=== PATIENT | female | born 1975 ===

== ENCOUNTER 2017-05-04 09:11 | Emergency (ER) | payer MEDICAID ==
[2017-05-04 09:43] VITALS: BMI 20.1
[2017-05-04 10:13] VITALS: TEMP 98.5
[2017-05-04] MEDS ORDERED: Tetanus/Diphtheria Toxoids 0.5 ml Syringe IM ONE ×2 (10:15→10:21)
--- NOTE | 2017-05-04 10:18 | C.PDOC ---
History Of Present Illness 41-YEAR-OLD FEMALE, PRESENTS TO THE EMERGENCY DEPARTMENT WITH COMPLAINTS OF R 4 FINGER INJURY LAST NIGHT. FINGER CAUGHT BETWEEN FENCE AND DOOR. NEW ONSET SWELLING TO TIP OF FINGER. +ABRASIONS. R HANDED EXAM NAD EXT +HEMATOMA, SWELLING DISTAL R 4 FINGER INC DIP. LIMITED ROM DUE TO PAIN, SWELL. NO GROSS TENDON DEF. NAIL WNL SKIN +SUPERFICIAL LAC AND ABRASIONS. DISTAL R FINGER WELL APPROXIMATED, NO ACTIVE BLEED. Time Seen by Provider: 05/04/17 10:14 Chief Complaint (Nursing): Finger,Hand,&Wrist History Per: Patient History/Exam Limitations: no limitations Onset/Duration Of Symptoms: Hrs Current Symptoms Are (Timing): Still Present Past Medical History Reviewed: Historical Data, Nursing Documentation, Vital Signs Vital Signs: Last Vital Signs Temp 98.5 F 05/04/17 09:46 Pulse 95 H 05/04/17 09:46 Resp 20 05/04/17 09:46 BP 157/99 H 05/04/17 09:46 Pulse Ox 95 05/04/17 10:37 Family History: States: No Known Family Hx - Social History Hx Alcohol Use: No Hx Substance Use: No - Immunization History Hx Tetanus Toxoid Vaccination: No Hx Influenza Vaccination: No Hx Pneumococcal Vaccination: No Review Of Systems Musculoskeletal: Positive for: Other (FINGER PAIN S/P INJURY LAST NIGHT) Physical Exam - Physical Exam Skin: Other ( +SUPERFICIAL LAC AND ABRASIONS. DISTAL R FINGER WELL APPROXIMATED , NO ACTIVE BLEED.) Extremity: Other (+HEMATOMA, SWELLING DISTAL R 4 FINGER INC DIP. LIMITED ROM DUE TO PAIN, SWELL. NO GROSS TENDON DEF. NAIL WNL) ED Course And Treatment O2 Sat by Pulse Oximetry: 95 Pulse Ox Interpretation: Normal - Other Rad R 4 FINGER X-Ray: Interpreted by Me (TUFT FX DISTAL PHALANX) Disposition Counseled Patient/Family Regarding: Studies Performed, Diagnosis, Need For Followup, Rx Given - Disposition Referrals: Michelle Macias MD [Staff Provider] - Disposition: HOME/ ROUTINE Disposition Time: 10:34 Condition: IMPROVED Prescriptions: Acetaminophen [Tylenol Extra Strength] 2 tab PO Q6 #30 tablet Ibuprofen [Motrin] 600 mg PO Q6 #30 tab Instructions: Finger Fracture (ED), Abrasion (ED) Forms: Work Excuse - Clinical Impression Clinical Impression: Closed fracture of tuft of distal phalanx of finger, Abrasion Orthopedic Care Application Of:: Finger Splint
[2017-05-04] MEDS ORDERED: Bacitracin 500 Units/gm Oint Foilpak UD TOP ONE (10:32)
[2017-05-04] MEDS ORDERED: Bacitracin 500 Units/gm Oint Foilpak UD ONE ×2 (10:36→10:38)
--- NOTE | 2017-05-04 10:56 | RAD ---
PROCEDURE: Right ring finger radiographs. HISTORY: TRAUMA COMPARISON: None. TECHNIQUE: AP radiograph of the right hand, as well as spot oblique and lateral images of ring finger were obtained. FINDINGS: RIGHT RING FINGER: Current study reveals a small avulsion fracture arising from the radial aspect of the base distal phalanx 4th finger. Fracture line extends into the joint space margin. There may also be some mild overlying soft swelling JOINTS: As above SOFT TISSUES: Normal. OTHER FINDINGS: None. IMPRESSION: Current study reveals a small avulsion fracture arising from the radial aspect of the base distal phalanx 4th finger. Fracture line extends into the joint space margin. There may also be some mild overlying soft swelling Concordant preliminary results.
[2017-05-04 11:07] VITALS: BP 125/78; PULSE 74; RESP 16; O2SAT 98
== END 2017-05-04 11:06 | disposition home or self-care (01) ==
LOC: C.ER 09:11
DX: S62.634A Displaced fracture of distal phalanx of right ring finger, initial encounter for closed fracture (principal); S60.414A Abrasion of right ring finger, initial encounter; W23.0XXA Caught, crushed, jammed, or pinched between moving objects, initial encounter